=== PATIENT | male | born 1980 | race Two or more races ===

== ENCOUNTER 2018-01-17 18:07 | Emergency (ER) | payer BC ==
[~2018-01-17] VITALS: Ht 167.6 cm; Wt 89.0 kg
[2018-01-17] MEDS ORDERED: IBUPROFEN 800MG TABLET PO ONE (18:45)
[2018-01-17 19:42] VITALS: BP 137/85
== END 2018-01-17 21:19 | disposition home or self-care (01) ==
LOC: ER 18:07 → EDBD 18:07 → ER 21:19
DX: S10.93XA Contusion of unspecified part of neck, initial encounter (principal); S20.229A Contusion of unspecified back wall of thorax, initial encounter; S40.012A Contusion of left shoulder, initial encounter; V43.52XA Car driver injured in collision with other type car in traffic accident, initial encounter; Y93.89 Activity, other specified; Y99.8 Other external cause status; Y92.89 Other specified places as the place of occurrence of the external cause
CPT/HCPCS: 73030; 99284